=== PATIENT | female | born 1990 | race African-American/Black ===

== ENCOUNTER 2017-06-20 00:25 | Emergency (ER) | payer SELFPAY ==
--- NOTE | 2017-06-20 01:41 | RADIOLOGY REPORT (SQ) ---
EXAM DESCRIPTION: CHEST PA/LAT COMPLETED DATE/TIME: 06/20/2017 1:30 am REASON FOR STUDY: RIB PAIN COMPARISON: None. EXAM PARAMETERS: NUMBER OF VIEWS: two views TECHNIQUE: Digital Frontal and Lateral radiographic views of the chest acquired. RADIATION DOSE: NA LIMITATIONS: none FINDINGS: LUNGS AND PLEURA: No consolidation, pneumothorax or pleural effusion. MEDIASTINUM AND HILAR STRUCTURES: No masses or contour abnormalities. HEART AND VASCULAR STRUCTURES: Heart normal size. No evidence for failure. BONES: No displaced rib fractures are noted. HARDWARE: None in the chest. IMPRESSION: No acute radiographic finding in the chest. TECHNICAL DOCUMENTATION: JOB ID: [id number] [employer]- All Rights Reserved
[2017-06-20] MEDS ORDERED: KETOROLAC TROMETHAMINE INJ/PF 30 MG/1 ML SDV IV ONE (01:45)
--- NOTE | 2017-06-20 01:47 | ER Document Report ---
ED General - General Mode of Arrival: Ambulatory Information source: Patient TRAVEL OUTSIDE OF THE [place] IN LAST 30 DAYS: No - HPI Patient complains to provider of: Left rib and abdominal pain Onset: Other - 2 days ago Associated symptoms: Other - see notes above <CHADWICK GRIFFITHS - Last Filed: 06/20/17 02:43> <SUZANNEZACHARY CANTRELL JARED - Last Filed: 06/20/17 04:40> - General Chief Complaint: Vaginal Bleeding Stated Complaint: VAGINAL BLEEDING Time Seen by Provider: 06/20/17 01:16 Notes: 27 year old female with no prior medical history presents to the ED complaining of left rib pain that radiates to the left abdomen and wraps under the right breast which started 2 days ago. Patient reports that she has been lifting her niece and nephew recently. Patient additionally complains of cough, but denies fever or dysuria. (CHADWICK GRIFFITHS) - Related Data Allergies/Adverse Reactions: No Known Allergies Allergy (Unverified 06/20/17 00:40) Past Medical History - General Information source: Patient - Social History Smoking Status: Current Every Day Smoker Family History: Reviewed & Not Pertinent Patient has suicidal ideation: No Patient has homicidal ideation: No - Medical History Medical History: Negative Renal/ Medical History: Denies: Hx Peritoneal Dialysis Surgical Hx: Negative <CHADWICK GRIFFITHS - Last Filed: 06/20/17 02:43> Review of Systems - Review of Systems Constitutional: No symptoms reported. denies: Fever EENT: No symptoms reported Cardiovascular: No symptoms reported Respiratory: See HPI, Cough Gastrointestinal: No symptoms reported Genitourinary: No symptoms reported. denies: Dysuria Female Genitourinary: No symptoms reported Musculoskeletal: See HPI, Other - left rib and abdominal pain that extends under the right breast. Skin: No symptoms reported Hematologic/Lymphatic: No symptoms reported Neurological/Psychological: No symptoms reported -: Yes All other systems reviewed and negative <CHADWICK GRIFFITHS - Last Filed: 06/20/17 02:43> Physical Exam - Vital signs Interpretation: Normal - General General appearance: Appears well, Alert - HEENT Head: Normocephalic, Atraumatic Eyes: Normal Pupils: PERRL - Respiratory Respiratory status: No respiratory distress Chest status: Tender - L chest wall TTP, anteriorly and posteriorly, rib 10 Chest palpation: Normal - Cardiovascular Rhythm: Regular Heart sounds: Normal auscultation Murmur: No - Abdominal Inspection: Normal Distension: No distension Bowel sounds: Normal Tenderness: Nontender Organomegaly: No organomegaly - Back Back: Normal, Nontender - Extremities General upper extremity: Normal inspection, Nontender, Normal color, Normal ROM , Normal temperature General lower extremity: Normal inspection, Nontender, Normal color, Normal ROM , Normal temperature, Normal weight bearing. No: Navdepe's sign - Neurological Neuro grossly intact: Yes Cognition: Normal Orientation: AAOx4 Aubrey Coma Scale Eye Opening: Spontaneous Aubrey Coma Scale Verbal: Oriented Aubrey Coma Scale Motor: Obeys Commands Aubrey Coma Scale Total: 15 Speech: Normal Motor strength normal: LUE, RUE, LLE, RLE Sensory: Normal - Psychological Associated symptoms: Normal affect, Normal mood - Skin Skin Temperature: Warm Skin Moisture: Dry Skin Color: Normal <ZACHARY VEGA - Last Filed: 06/20/17 04:40> - Vital signs Vitals: Temp Pulse Resp BP Pulse Ox 98.7 F 77 16 160/95 H 100 06/20/17 03:42 06/20/17 03:42 06/20/17 03:42 06/20/17 03:42 06/20/17 03:42 Course - Laboratory Result Diagrams: 06/20/17 01:44 06/20/17 01:44 <CHADWICK GRIFFITHS - Last Filed: 06/20/17 02:43> - Laboratory Result Diagrams: 06/20/17 01:44 06/20/17 01:44 - Diagnostic Test Radiology reviewed: Reports reviewed <ZACHARY VEGA - Last Filed: 06/20/17 04:40> - Re-evaluation Re-evalutation: 06/20/17 04:14 Patient with reproducible chest wall tenderness to palpation. No acute findings on chest x-ray. Patient has been carrying her nieces and nephews around on one side or the other which is likely the cause of her pain. Feels better after Toradol. Patient has low potassium on blood work and states that she has recently had diarrhea. Potassium has been replaced. Patient is feeling well at this time would like to go home. Follow-up with PMD as needed. Understands and agrees with plan. Return if any worsening or concerning symptoms. (ZACHARY VEGA) - Vital Signs Vital signs: Temp Pulse Resp BP Pulse Ox 98.7 F 77 16 160/95 H 100 06/20/17 03:42 06/20/17 03:42 06/20/17 03:42 06/20/17 03:42 06/20/17 03:42 - Laboratory Laboratory results interpreted by me: 06/20/17 06/20/17 06/20/17 01:44 01:44 01:44 WBC 12.4 H Sodium 146.5 H Potassium 3.0 L* Chloride 109 H Glucose 115 H Urine Ketones 20 H Urine Blood LARGE H Discharge <CHADWICK GRIFFITHS - Last Filed: 06/20/17 02:43> <ZACHARY VEGA - Last Filed: 06/20/17 04:40> - Discharge Clinical Impression: Hypokalemia, Rib pain on left side Condition: Stable Disposition: HOME, SELF-CARE Instructions: Chest Wall Pain ([facility]), Hypokalemia ([facility]) Forms: Return to Work Scribe Attestation: 06/20/17 04:40 I personally performed the services described in the documentation, reviewed and edited the documentation which was dictated to the scribe in my presence, and it accurately records my words and actions. (ZACHARY VEGA) Scribe Documentation - Scribe Written by Charyibe:: Marino Lubin, 06/20/2017 [id number] acting as scribe for :: Lauri <CHADWICK GRIFFITHS - Last Filed: 06/20/17 02:43>
[2017-06-20 01:57] LABS: ABSOLUTE BASOPHILS # (AUTO) 0.1 10^3/uL (0.0-0.2); ABSOLUTE EOSINOPHILS # (AUTO) 0.1 10^3/uL (0.0-0.6); ABSOLUTE LYMPHOCYTES (AUTO) 3.7 10^3/uL (0.5-4.7); ABSOLUTE MONOCYTES (AUTO) 0.4 10^3/uL (0.1-1.4); BASOPHILS % (AUTO) 0.9 % (0-2); HEMATOCRIT 38.7 % (36.0-47.0); HEMOGLOBIN 13.3 g/dL (12.0-15.5); HGB HCT DIFFERENCE 1.2; LYMPHOCYTES % (AUTO) 29.9 % (13-45); MEAN CORPUSCULAR HEMOGLOBIN 30.9 pg (27.0-33.4); MEAN CORPUSCULAR HGB CONC 34.3 g/dL (32.0-36.0); MEAN CORPUSCULAR VOLUME 90 fl (80-97); MONOCYTES % (AUTO) 3.3 % (3-13); RED CELL DISTRIBUTION WIDTH 13.1 % (11.5-14.0); SEGMENTED NEUTROPHILS % (AUTO) 64.9 % (42-78); WHITE BLOOD COUNT 12.4 10^3/uL (4.0-10.5)
[2017-06-20 02:04] LABS: APPEARANCE,URINE SLIGHTLY-CLOUDY; BILIRUBIN,URINE NEGATIVE (NEGATIVE); GLUCOSE, URINE NEGATIVE (NEGATIVE); KETONES,URINE 20 mg/dL (NEGATIVE); LEUKOCYTE ESTERASE,URINE NEGATIVE (NEGATIVE); NITRITE,URINE NEGATIVE (NEGATIVE); PROTEIN,URINE NEGATIVE (NEGATIVE); URINE SPECIFIC GRAVITY 1.021; UROBILINOGEN,URINE NEGATIVE mg/dL (<2.0)
[2017-06-20 02:15] LABS: ALANINE AMINOTRANSFERASE 30 U/L (9-52); ALBUMIN 4.4 g/dL (3.5-5.0); ALKALINE PHOSPHATASE 79 U/L (38-126); ANION GAP 13 (5-19); ASPARTATE AMINO TRANSFERASE 33 U/L (14-36); BILIRUBIN,DIRECT 0.3 mg/dL (0.0-0.4); BILIRUBIN,TOTAL 0.3 mg/dL (0.2-1.3); BLOOD UREA NITROGEN 15 mg/dL (7-20); CARBON DIOXIDE 25 mmol/L (22-30); CHLORIDE 109 mmol/L (98-107); CREATININE RESULT 0.71 mg/dL (0.52-1.25); GLUCOSE 115 mg/dL (75-110); SODIUM 146.5 mmol/L (137-145); TOTAL PROTEIN 7.7 g/dL (6.3-8.2)
[2017-06-20] MEDS ORDERED: POTASSIUM CHLORIDE 10 MEQ TABLET.SA PO ONE (02:30)
[2017-06-20 03:44] VITALS: BP 160/95
== END 2017-06-20 03:42 | disposition home or self-care (01) ==
LOC: ER 00:25
DX: R07.81 Pleurodynia (principal); E87.6 Hypokalemia; R10.9 Unspecified abdominal pain; R05 Cough; F17.200 Nicotine dependence, unspecified, uncomplicated
CPT/HCPCS: 99284; 96374; 36415; 85025; 81025; 80053; 81001; 71020; J1885